=== PATIENT | male | born 1985 | race Caucasian/White ===

== ENCOUNTER 2020-03-07 00:06 | Inpatient (IN) | payer SELFPAY ==
[2020-03-07] MEDS ORDERED: NORMAL SALINE 1000 ML 1,000 ML IV ONE (00:32)
[2020-03-07] MEDS ORDERED: ONDANSETRON HCL INJ/PF 4 MG/2 ML SDV IV ONE (00:32)
--- NOTE | 2020-03-07 00:45 | ER Document Report ---
ED General - General Chief Complaint: Nausea/Vomiting Stated Complaint: VOMITING DUE TO POSSIBLE ULCERS Time Seen by Provider: 03/07/20 00:34 - HPI Context: Chief Complaint: [Nausea and vomiting] [This is a 34-year-old male presenting to the emergency department complaining of n/v x 24 hours. States he has been on doxycycline x 24 hours for cysts in his groin area. Pt reports he was feeling fine until he started the antibiotic. Reports he stopped the doxycycline today and started on Keflex. Pt denies diarrhea, reports pain to cysts in groin area. ] History obtained from [patient] Symptoms began:[1 day ago] Onset: [Sudden] Timing: [Sudden] Quality: [Severe nausea and persistent vomiting] Intensity: [Severe per patient] Location: [GI tract] Radiation: [Denies] [The pain does not migrate to a new location.] Aggravating factors: Patient started on doxycycline 24 hours ago Relieving factors: [none] [Denies] SOB Positive nausea Positive vomiting [Denies] sweats [Denies] fever [Denies] cough [Denies] calf or leg swelling or pain - Related Data Allergies/Adverse Reactions: Iodine and Iodide Containing Produc Allergy (Verified 03/07/20 01:04) Pertussis Vaccines Allergy (Verified 03/07/20 01:04) sulfamethoxazole [From Bactrim] Allergy (Verified 03/07/20 01:04) trimethoprim [From Bactrim] Allergy (Verified 03/07/20 01:04) Past Medical History - General Information source: Patient - Social History Smoking Status: Never Smoker Chew tobacco use (# tins/day): No Frequency of alcohol use: None Drug Abuse: None Family History: Reviewed & Not Pertinent Patient has homicidal ideation: No Review of Systems - Review of Systems Notes: Review of systems as below unless otherwise stated in HPI. CONSTITUTIONAL [No] fever, [No] chills. EYES [No] eye pain. ENT [No] URI symptoms, [No] sore throat, [No] ear pain. CARDIOVASCULAR [No] chest pain, [No] palpitations, [No] edema. RESPIRATORY [No] Cough, [No] SOB, [No] wheezing. GASTROINTESTINAL [No] abdominal pain, positive nausea, [No] Diarrhea, positive vomiting, [No] constipation, [No] melena, [No] rectal bleeding. GENITOURINARY [No] dysuria, [No] urinary frequency, [No] hematuria, [No] urinary urgency MUSCULOSKELETAL [No] Back pain. SKIN [No] Rash. NEUROLOGIC [No] Headache, [No] recent seizures, [No] paralysis,[No] parathesias. ENDOCRINE [No] polyuria. HEMO/LYMPATIC [No] easy brusing PSYCHIATRIC [No] depression. Physical Exam - Vital signs Vitals: Temp Pulse Resp BP Pulse Ox 98.3 F 151 H 13 122/79 100 03/07/20 00:16 03/07/20 00:16 03/07/20 00:16 03/07/20 00:16 03/07/20 00:16 - Notes Notes: CONSTITUTIONAL [Vital signs reviewed, Patient appears to feel unwell, Alert and oriented X 3, Normal stature.] HEAD [Atraumatic, Normocephalic.] EYES [Eyes are normal to inspection, No discharge from eyes, Extraocular muscles intact, Sclera are normal, Conjunctiva are normal.] ENT [External ears normal to inspection, Nose examination normal, Mouth normal to inspection.] NECK [Normal ROM, No jugular venous distention, No meningeal signs, ] RESPIRATORY CHEST [Chest is nontender, Breath sounds normal, No respiratory distress.] CARDIOVASCULAR Tachycardia no murmurs, Normal S1 S2, No rub, No gallop.] ABDOMEN [Abdomen is nontender, No pulsatile masses, No other masses, Bowel sounds normal, No distension, No peritoneal signs, No hernias.] BACK [There is no CVA Tenderness, There is no tenderness to palpation, Normal inspection.] UPPER EXTREMITY [Inspection normal, No cyanosis, No clubbing, No edema, LOWER EXTREMITY [Inspection normal, No cyanosis, No clubbing, No edema, No calf tenderness, NEURO [No focal motor deficits, No focal sensory deficits, Speech normal.] SKIN Skin exam is significant for erythema and swelling in the region of the mons pubis on the left side. This erythema and edema tracks down the left side of the scrotum it does not appear to involve the perineum. There is no crepitus or emphysematous changes noted on examination.]] PSYCHIATRIC [Normal affect. ] Course - Re-evaluation Re-evalutation: 03/07/20 05:08 Results of ED MSE discussed with patient. Need for admission discussed with patient. Patient is agreeable to this. - Vital Signs Vital signs: Temp Pulse Resp BP Pulse Ox 98.6 F 151 H 26 H 137/82 H 98 03/07/20 00:28 03/07/20 00:16 03/07/20 04:50 03/07/20 04:50 03/07/20 04:50 - Laboratory Results Result Diagrams: 03/07/20 00:36 03/07/20 00:36 Laboratory Results Interpreted: 03/07/20 03/07/20 03/07/20 00:36 00:36 00:36 WBC 27.1 H RBC 6.68 H Hgb 18.2 H Hct 55.9 H Seg Neuts % (Manual) 82 H Lymphocytes % (Manual) 10 L Abs Neuts (Manual) 22.2 H Abs Monocytes (Manual) 2.2 H VBG pH VBG pCO2 VBG HCO3 Carbon Dioxide 6 L* Anion Gap 36 H Glucose 492 H* POC Glucose Lactic Acid 4.9 H Calcium 10.4 H Direct Bilirubin 0.5 H Alkaline Phosphatase 166 H Total Protein 8.7 H Urine Protein Urine Glucose (UA) Urine Ketones Urine Blood 03/07/20 03/07/20 03/07/20 00:36 02:20 03:30 WBC RBC Hgb Hct Seg Neuts % (Manual) Lymphocytes % (Manual) Abs Neuts (Manual) Abs Monocytes (Manual) VBG pH 7.14 L* VBG pCO2 26.0 L VBG HCO3 8.7 L Carbon Dioxide Anion Gap Glucose POC Glucose 399 H Lactic Acid Calcium Direct Bilirubin Alkaline Phosphatase Total Protein Urine Protein 30 H Urine Glucose (UA) >=500 H Urine Ketones 80 H Urine Blood SMALL H 03/07/20 03:42 WBC RBC Hgb Hct Seg Neuts % (Manual) Lymphocytes % (Manual) Abs Neuts (Manual) Abs Monocytes (Manual) VBG pH VBG pCO2 VBG HCO3 Carbon Dioxide Anion Gap Glucose POC Glucose 336 H Lactic Acid Calcium Direct Bilirubin Alkaline Phosphatase Total Protein Urine Protein Urine Glucose (UA) Urine Ketones Urine Blood Critical Laboratory Results Reviewed: Yes Attending or Supervising Physician who Reviewed Labs: NUBIA SHELLEY IV - Radiology Results Critical Radiology Results Reviewed: Yes Attending or Supervising Physician who Reviewed Radiology: NUBIA SHELLEY IV - Chest x-ray and CAT scan reviewed - EKG Interpretation by Me Additional EKG results interpreted by me: 03/07/20 01:24 EKG obtained on 03/07/2020 at 0106 hrs. was interpreted by this MD. Findings: Sinus tachycardia, rate 141, AL interval appears to be within normal limits, P waves preceding QRS complexes, QRS complexes appear narrow, QTC is 404, there are no obvious patterns of ST segment elevation or depression seen to suggest acute myocardial ischemia or infarction. There is no prior EKG available for comparison. Impression: Sinus tachycardia with nonspecific ST segments. - Consults Dr. Sales Time consulted: 05:01 Reason for consultation: 03/07/20 05:01 cellulitis with elevated lactic acid, tachycardia Consulted provider: will come to ER Critical Care Note - Critical Care Note Total time excluding time spent on procedures (mins): 120 - Management of SIRS in diabetic pt Discharge - Discharge Clinical Impression: SIRS (systemic inflammatory response syndrome), H/O diabetes mellitus Cellulitis Qualifiers: Site of cellulitis: other site Qualified Code(s): L03.818 - Cellulitis of other sites Condition: Stable Disposition: ADMITTED INPATIENT Admitting Provider: Henrry (Hospitalist) Unit Admitted: [facility]
[2020-03-07 00:53] LABS: HEMOGLOBIN 18.2 g/dL (13.5-17.0); MEAN CORPUSCULAR HEMOGLOBIN 27.2 pg (27.0-33.4); MEAN CORPUSCULAR HGB CONC 32.5 g/dL (32.0-36.0); MEAN CORPUSCULAR VOLUME 84 fl (80-97); PLATELET COUNT 417 10^3/uL (150-450); RED BLOOD COUNT 6.68 10^6/uL (4.35-5.55); RED CELL DISTRIBUTION WIDTH 13.3 % (11.5-14.0); WHITE BLOOD COUNT 27.1 10^3/uL (4.0-10.5)
[2020-03-07] MEDS ORDERED: PROMETHAZINE HCL INJ 25 MG/1 ML VIAL IV ONE (00:59)
[2020-03-07 01:02] LABS: VENOUS BLOOD BASE EXCESS -18.6 mmol/L; VENOUS BLOOD HCO3 8.7 mmol/L (20-32)
[2020-03-07 01:06] LABS: ALBUMIN 4.8 g/dL (3.5-5.0); ALKALINE PHOSPHATASE 166 U/L (38-126); ASPARTATE AMINO TRANSFERASE 19 U/L (17-59); BILIRUBIN,DIRECT 0.5 mg/dL (0.0-0.4); BILIRUBIN,TOTAL 0.7 mg/dL (0.2-1.3); BLOOD UREA NITROGEN 19 mg/dL (7-20); CALCIUM 10.4 mg/dL (8.4-10.2); CHLORIDE 99 mmol/L (98-107); POTASSIUM 4.9 mmol/L (3.6-5.0); TOTAL PROTEIN 8.7 g/dL (6.3-8.2)
[2020-03-07 01:16] LABS: ANION GAP 36 (5-19)
[2020-03-07 01:17] LABS: CARBON DIOXIDE 6 mmol/L (22-30); GLUCOSE 492 mg/dL (75-110)
[2020-03-07 01:18] LABS: HEMATOCRIT 55.9 % (37.9-51.0)
[2020-03-07 01:19] LABS: VENOUS BLOOD PH 7.14 (7.30-7.42)
[2020-03-07 01:22] LABS: ABSOLUTE LYMPHOCYTES# (MANUAL) 2.7 10^3/uL (0.5-4.7); ABSOLUTE MONOCYTES # (MANUAL) 2.2 10^3/uL (0.1-1.4); BASOPHILS % (MANUAL) 0 % (0-2); EOSINOPHILS % (MANUAL) 0 % (0-6); LYMPHOCYTES % (MANUAL) 10 % (13-45); MONOCYTES % (MANUAL) 8 % (3-13); PLATELET COMMENT ADEQUATE; SEGMENTED NEUTROPHILS % (MAN) 82 % (42-78); TOTAL CELLS COUNTED 100
[2020-03-07 01:24] LABS: PLATELET CLUMPS PRESENT; POLYCHROMASIA SLIGHT
[2020-03-07] MEDS: NORMAL SALINE 1000 ML 1,000 ML IV PRN ×5 (01:31→03:11)
--- NOTE | 2020-03-07 01:33 | RADIOLOGY REPORT (SQ) ---
EXAM DESCRIPTION: XR CHEST 1 VIEW COMPLETED DATE/TME: 03/07/2020 01:15 CLINICAL HISTORY: 34 years, Male, vomiting COMPARISON: None. NUMBER OF VIEWS: 1 TECHNIQUE: Portable chest LIMITATIONS: None. FINDINGS: The heart size is normal. Lungs are clear. No pneumothorax IMPRESSION: Negative chest copyright 2011 [employer]- All Rights Reserved
[2020-03-07] MEDS ORDERED: PIPERACILLIN/TAZOBACTAM 4.5 GM VIAL IV ONE (03:35)
[2020-03-07 03:42] LABS: APPEARANCE,URINE CLEAR; BILIRUBIN,URINE NEGATIVE (NEGATIVE); COLOR,URINE STRAW; GLUCOSE, URINE >=500 mg/dL (NEGATIVE); KETONES,URINE 80 mg/dL (NEGATIVE); LEUKOCYTE ESTERASE,URINE NEGATIVE (NEGATIVE); NITRITE,URINE NEGATIVE (NEGATIVE); PROTEIN,URINE 30 mg/dL (NEGATIVE); URINE SPECIFIC GRAVITY 1.023; UROBILINOGEN,URINE NEGATIVE mg/dL (<2.0)
[2020-03-07 04:20] LABS: INTERNATIONAL RATION (INR) 1.17; PROTHROMBIN TIME 15.1 SEC (11.4-15.4)
--- NOTE | 2020-03-07 04:30 | RADIOLOGY REPORT (SQ) ---
EXAM: CT abdomen and pelvis without intravenous contrast CLINICAL DATA: 34 years Male nausea, vomiting, leukocytosis, lactic acid 3.9 TECHNICAL DATA: Axial CT imaging of the abdomen and pelvis was performed without oral or intravenous contrast. Sagittal and coronal reconstructed images were then performed. The CT study is performed according to ALARA (as low as reasonably achievable) or ALARA/IMAGE GENTLY, with automatic adjustment of mA and/or kV according to patient size. Performed on: 03/07/2020 at 3:45 AM Comparison: None. FINDINGS: Lung bases: Lung bases are clear. Liver:The liver is normal in size and configuration. No focal hepatic abnormalities are appreciated on this unenhanced scan. Liver attenuation is within normal limits. Spleen:The spleen is normal is size, configuration and attenuation. No focal splenic abnormalities are appreciated on this unenhanced scan. Gallbladder and bile duct: The gallbladder is well distended and unremarkable. There is no biliary ductal dilatation. Pancreas: The pancreas is grossly normal in size and configuration. Adrenal Glands:The adrenal glands are normal in size and configuration. Kidneys:The kidneys are normal in size and configuration. There is no evidence of hydronephrosis. There is no evidence of nephrolithiasis. No focal renal abnormalities are identified. Stomach:The stomach is grossly normal. There is no definite hiatal hernia. Bowel:The bowel gas pattern is non specific and non obstructive. Appendix: The appendix is normal. Free air:There is no evidence of free air. Free fluid: There is no evidence of free fluid. Vasculature: The aorta is normal in caliber and contour. The inferior vena cava is grossly unremarkable. Lymphadenopathy: No pathologic lymphadenopathy is identified. Bladder: The bladder is well distended and smooth in contour. Reproductive: The prostate gland is grossly within normal limits. Bones: No acute osseous abnormalities are identified. Soft tissues: There is infiltration of the subcutaneous fat in the left inguinal region of unclear etiology. An underlying infectious or inflammatory process is not excluded. Edema or contusion are also considered. IMPRESSION: 1. No evidence of acute intra-abdominal or intrapelvic pathology.. 2. Infiltration of the subcutaneous fat in the left inguinal region of unclear etiology. An underlying infectious or inflammatory process is not excluded. Edema or contusion are also considered.
[2020-03-07] MEDS ORDERED: VANCOMYCIN HCL INJ 1000 MG VIAL IV ONE (04:56)
[2020-03-07] MEDS ORDERED: CLINDAMYCIN 600 MG/D5W RTU 600 MG/50 ML RTUPB IV ONE (04:59)
[2020-03-07] MEDS ORDERED: OXYCODONE-ACETAMINOPHEN 5-325 MG TABLET PO PRN (05:36)
[2020-03-07] MEDS ORDERED: ONDANSETRON HCL INJ/PF 4 MG/2 ML SDV IV PRN (05:36)
[2020-03-07] MEDS ORDERED: ONDANSETRON 4 MG TAB.RAPDIS PO PRN (05:36)
[2020-03-07] MEDS ORDERED: NORMAL SALINE 1000 ML 1,000 ML IV PRN (05:36)
[2020-03-07] MEDS ORDERED: ACETAMINOPHEN 325 MG TABLET PO PRN (05:36)
[2020-03-07] MEDS ORDERED: DEXTROSE 50%-WATER 25 GM/50 ML DISP.SYRIN IV PRN ×4 (05:51→06:10)
[2020-03-07] MEDS ORDERED: NORMAL SALINE 100 ML with INSULIN REGULAR, HUMAN 100 UNIT IV PRN ×4 (05:51→06:10)
[2020-03-07] MEDS ORDERED: DEXTROSE 40% GEL 15 GM TUBE PO PRN ×4 (05:51→06:10)
[2020-03-07] MEDS ORDERED: GLUCAGON,HUMAN RECOMB 1 MG INJ IM PRN ×2 (05:51→06:10)
[2020-03-07] MEDS ORDERED: MORPHINE SULFATE 10 MG/ML INJ IV PRN (05:58)
[2020-03-07] MEDS ORDERED: INSULIN GLARGINE,HUM.REC.ANLOG 1,000 UNIT/10 ML VIAL SUBCUT SCH (06:00)
[2020-03-07] MEDS ORDERED: PIPERACILLIN/TAZOBACTAM 3.375 GM VIAL IV SCH (06:00)
--- NOTE | 2020-03-07 06:03 | PDOC H&P ---
History of Present Illness Admission Date/PCP: 03/07/20 05:16 History of Present Illness: WILMAN HERRERA is a 34 year old male with past medical history significant for T2DM presents to the ED with a 3-day history of progressive left groin pain/edema/erythema with associated chills/nausea/vomiting. Patient was evaluated by telemedicine physician who gave him oral doxycycline which patient took for 2 days and subsequently began vomiting, telemedicine physician stopped this and changed patient to Keflex which he took for 1 day although the patient continued vomiting. Patient came to ED today for worsening symptoms and inability to keep his antibiotics down. Patient notably tachycardic into the 130s on admission despite being given multiple liters of IV fluid. CT abdomen/pelvis showed likely infection/cellulitis in the left groin otherwise no acute findings. Blood sugar markedly elevated on admission up to 492 and lactate elevated at 4.9. Urine showed severe glucosuria and ketones, patient also has a gap acidosis of 36 on BMP and a CO2 of 6. Patient started on insulin drip and sent IMCU. Started on vancomycin/Zosyn/clindamycin for sepsis due to left groin cellulitis. Past Medical History Endocrine Medical History: Reports: Diabetes Mellitus Type 2 Renal/ Medical History: Reports: Nephrolithiasis Past Surgical History Past Surgical History: Reports: None Social History Information Source: Patient, Emergency Med Personnel Lives with: Family Smoking Status: Never Smoker Electronic Cigarette use?: No Frequency of Alcohol Use: None Drugs: None - Advance Directive Resuscitation Status: Full Code Surrogate healthcare decision maker:: Admitting diagnosis: Sepsis due to cellulitis All aspects of code status discussed with patient/POA including cardioversion, chest compressions, and intubation and the patient/POA indicated they wish to be full code MPOA is designated as: , Destiny Herrera Time spent: Greater than 16 minutes Family History Family History: Reviewed & Not Pertinent Parental Family History Reviewed: Yes Children Family History Reviewed: Yes Sibling(s) Family History Reviewed.: Yes Medication/Allergy Allergies/Adverse Reactions: Iodine and Iodide Containing Produc Allergy (Verified 03/07/20 01:04) Pertussis Vaccines Allergy (Verified 03/07/20 01:04) sulfamethoxazole [From Bactrim] Allergy (Verified 03/07/20 01:04) trimethoprim [From Bactrim] Allergy (Verified 03/07/20 01:04) Review of Systems All systems: reviewed and no additional remarkable complaints except as stated - Per HPI otherwise negative Physical Exam Vital Signs: Temp Pulse Resp BP Pulse Ox 98.6 F 151 H 30 H 126/73 H 97 03/07/20 00:28 03/07/20 00:16 03/07/20 05:01 03/07/20 05:01 03/07/20 05:01 Intake & Output 03/05/20 03/06/20 03/07/20 06:59 06:59 06:59 Intake Total 5250 Output Total 1200 Balance 4050 Weight 104.326 kg Exam: General appearance: PRESENT: no acute distress, well-developed, well-nourished, acutely ill-appearing white male, obese with BMI 32.1 Head exam: PRESENT: atraumatic, normocephalic Eye exam: PRESENT: conjunctiva pink. ABSENT: scleral icterus Mouth exam: PRESENT: moist Respiratory exam: PRESENT: clear to auscultation [place]. ABSENT: rales, rhonchi, wheezes Cardiovascular exam: PRESENT: RRR. ABSENT: diastolic murmur, rubs, systolic murmur GI/Abdominal exam: PRESENT: normal bowel sounds, soft. ABSENT: distended, guarding, mass, organolmegaly, rebound, tenderness Neurological exam: PRESENT: alert, awake, oriented to person, oriented to place, oriented to time, oriented to situation Psychiatric exam: PRESENT: appropriate affect, normal mood Skin exam: PRESENT: dry, intact, warm exam: Left groin with notable erythema/edema/tenderness Results Laboratory Results: 03/07/20 00:36 03/07/20 00:36 03/07/20 03/07/20 03/07/20 00:36 00:36 00:36 WBC 27.1 H RBC 6.68 H Hgb 18.2 H Hct 55.9 H MCV 84 MCH 27.2 MCHC 32.5 RDW 13.3 Plt Count 417 Seg Neutrophils % Not Reportable VBG pH VBG pCO2 VBG HCO3 VBG Base Excess Sodium 140.7 Potassium 4.9 Chloride 99 Carbon Dioxide 6 L* Anion Gap 36 H BUN 19 Creatinine 1.12 Est GFR ( Amer) > 60 Glucose 492 H* Lactic Acid 4.9 H Calcium 10.4 H Total Bilirubin 0.7 AST 19 Alkaline Phosphatase 166 H Total Protein 8.7 H Albumin 4.8 Lipase Urine Color Urine Appearance Urine pH Ur Specific [place] Urine Protein Urine Glucose (UA) Urine Ketones Urine Blood Urine Nitrite Ur Leukocyte Esterase Urine WBC (Auto) Urine RBC (Auto) 03/07/20 03/07/20 03/07/20 00:36 00:36 03:30 WBC RBC Hgb Hct MCV MCH MCHC RDW Plt Count Seg Neutrophils % VBG pH 7.14 L* VBG pCO2 26.0 L VBG HCO3 8.7 L VBG Base Excess -18.6 Sodium Potassium Chloride Carbon Dioxide Anion Gap BUN Creatinine Est GFR ( Amer) Glucose Lactic Acid Calcium Total Bilirubin AST Alkaline Phosphatase Total Protein Albumin Lipase 54.1 Urine Color STRAW Urine Appearance CLEAR Urine pH 5.0 Ur Specific [place] 1.023 Urine Protein 30 H Urine Glucose (UA) >=500 H Urine Ketones 80 H Urine Blood SMALL H Urine Nitrite NEGATIVE Ur Leukocyte Esterase NEGATIVE Urine WBC (Auto) 1 Urine RBC (Auto) 7 Impressions: Chest X-Ray 03/07/20 00:44 IMPRESSION: Negative chest copyright 2011 [employer]- All Rights Reserved Abdomen/Pelvis CT 03/07/20 03:37 IMPRESSION: 1. No evidence of acute intra-abdominal or intrapelvic pathology.. 2. Infiltration of the subcutaneous fat in the left inguinal region of unclear etiology. An underlying infectious or inflammatory process is not excluded. Edema or contusion are also considered. Assessment and Plan - Diagnosis (1) Cellulitis of left groin Is this a current diagnosis for this admission?: Yes Plan: Unclear how/why patient developed cellulitis in his left groin CT abdomen/pelvis showed extravasation in the left groin consistent with inflammatory/infectious process Ultrasound left groin to evaluate for abscess May need general surgery consult if drainable abscess is found Vancomycin/Zosyn/clindamycin (2) DKA (diabetic ketoacidoses) Qualifiers: Diabetes mellitus type: type 2 Diabetes mellitus complication detail: without coma Qualified Code(s): E11.10 - Type 2 diabetes mellitus with ketoacidosis without coma Is this a current diagnosis for this admission?: Yes Plan: T2DM -Insulin drip, frequent glucose checks with appropriate adjustments in insulin infusion rate -May need long acting insulin indicated for HgA1C of 10 or greater at discharge -diet counseling -outpt FU with PCP CO2 on admission 6 Anion gap 36 on admission (3) Sepsis Qualifiers: Sepsis type: sepsis due to unspecified organism Sepsis acute organ dysfunction status: with acute organ dysfunction Severe sepsis acute organ dysfunction type: unspecified Severe sepsis shock status: without septic shock Qualified Code(s): A41.9 - Sepsis, unspecified organism; R65.20 - Severe sepsis without septic shock Is this a current diagnosis for this admission?: Yes Plan: Due to left groin cellulitis Aggressive IV fluids Antibiotics as above Close hemodynamic monitoring Watch for septic shock and transferred to ICU for pressor support if indicated (4) T2DM (type 2 diabetes mellitus) Qualifiers: Diabetes mellitus custodial insulin use: without custodial use Diabetes mellitus complication status: with hyperglycemia Qualified Code(s): E11.65 - Type 2 diabetes mellitus with hyperglycemia Is this a current diagnosis for this admission?: Yes Plan: As above (5) Obesity (BMI 30.0-34.9) Is this a current diagnosis for this admission?: Yes Plan: Needs weight loss (6) Metabolic acidosis, increased anion gap Is this a current diagnosis for this admission?: Yes Plan: As above - Time Time Spent with patient: 35 or more minutes Medications reviewed and adjusted accordingly: Yes Anticipated Discharge Disposition: Home, Self Care Anticipated Discharge Timeframe: within 72 hours - Inpatient Certification Based on my medical assessment, after consideration of the patient's comorbidities, presenting symptoms, or acuity I expect that the services needed warrant INPATIENT care.: Yes I certify that my determination is in accordance with my understanding of Medicare's requirements for reasonable and necessary INPATIENT services [42 CFR 412.3e].: Yes Medical Necessity: Significant Comorbidiites Make Outpatient Treatment Too Risky, Need Close Monitoring Due to Risk of Patient Decompensation, Need For IV Fluids, Need for IV Antibiotics, Risk of Complication if Not Cared For in Hospital, Risk of Diagnosis Which Will Require Inpatient Eval/Care/Monitoring
[2020-03-07 06:23] LABS: HEMATOCRIT 45.4 % (37.9-51.0); MEAN CORPUSCULAR HEMOGLOBIN 27.7 pg (27.0-33.4); MEAN CORPUSCULAR HGB CONC 32.8 g/dL (32.0-36.0); MEAN CORPUSCULAR VOLUME 84 fl (80-97); PLATELET COUNT 300 10^3/uL (150-450); RED BLOOD COUNT 5.38 10^6/uL (4.35-5.55); RED CELL DISTRIBUTION WIDTH 13.5 % (11.5-14.0); WHITE BLOOD COUNT 23.3 10^3/uL (4.0-10.5)
[2020-03-07] MEDS ORDERED: INSULIN REG, HUMAN 100 UNIT/ML 3 ML VIAL (PYX) ONE (06:23)
[2020-03-07 06:50] LABS: BLOOD UREA NITROGEN 18 mg/dL (7-20); CALCIUM 8.6 mg/dL (8.4-10.2); CHLORIDE 115 mmol/L (98-107); POTASSIUM 5.3 mmol/L (3.6-5.0)
[2020-03-07 07:17] LABS: CARBON DIOXIDE < 5 mmol/L (22-30); GLUCOSE 412 mg/dL (75-110)
[2020-03-07 07:56] LABS: HEMOGLOBIN 14.9 g/dL (13.5-17.0)
[2020-03-07 07:59] LABS: ABSOLUTE LYMPHOCYTES# (MANUAL) 1.9 10^3/uL (0.5-4.7); ABSOLUTE MONOCYTES # (MANUAL) 1.9 10^3/uL (0.1-1.4); BASOPHILS % (MANUAL) 0 % (0-2); EOSINOPHILS % (MANUAL) 0 % (0-6); LYMPHOCYTES % (MANUAL) 8 % (13-45); MONOCYTES % (MANUAL) 8 % (3-13); SEGMENTED NEUTROPHILS % (MAN) 84 % (42-78); TOTAL CELLS COUNTED 100
[2020-03-07 08:00] LABS: PLATELET COMMENT ADEQUATE
[2020-03-07 08:01] LABS: HYPERSEGMENTED NEUTROPHILS PRESENT
[2020-03-07 08:03] LABS: TOXIC VACUOLATION PRESENT
[2020-03-07 08:04] LABS: POLYCHROMASIA SLIGHT
--- NOTE | 2020-03-07 08:19 | RADIOLOGY REPORT (SQ) ---
EXAM DESCRIPTION: U/S ABDOMEN LIMITED W/O DOP IMAGES COMPLETED DATE/TIME: 03/07/2020 7:57 am REASON FOR STUDY: Possible left groin abscess COMPARISON: None. TECHNIQUE: Dynamic and static grayscale images acquired of the localized site of clinical concern an d recorded on PACS. Additional selected color Doppler and spectral images recorded. SITE OF CONCERN: Left groin LIMITATIONS: None. FINDINGS: SKIN AND SUBCUTANEOUS TISSUES: Extensive edema in the fatty soft tissues. There is an vish ngated 3.7 cm fluid collection. No blood flow. DEEP SOFT TISSUES/MUSCLES: No masses. No fluid collections. No edema. VASCULAR: No increased or decreased vascularity. No occlusions. OTHER: No other significant finding. IMPRESSION: 3.7 cm fluid collection with surrounding extensive edema in the subcutaneous fat likely abscess. TECHNICAL DOCUMENTATION: JOB ID: [id number] 2010 [employer]- All Rights Reserved Reading location - IP/workstation name: [email or web address]
[2020-03-07] MEDS ORDERED: PIPERACILLIN SODIUM/TAZOBACTAM 3.375 GM in NORMAL SALINE 100 ML IV SCH ×2 (09:00→12:00)
[2020-03-07] MEDS ORDERED: DOCUSATE SODIUM 100 MG CAPSULE PO SCH (10:00)
[2020-03-07] MEDS ORDERED: ENOXAPARIN SODIUM INJ 40 MG/0.4 ML DISP.SYRIN SUBCUT SCH (10:00)
[2020-03-07] MEDS: INSULIN LISPRO 100 UNIT/ML 3 ML VIAL SUBCUT SCH ×2 (10:32→11:55)
--- NOTE | 2020-03-07 10:43 | PDOC CONSULTATION ---
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 He called his primary care physician and received a prescription of doxycycline that the patient took without improvement of his symptoms therefore he presented to the emergency room this morning. He is blood work reveals a white blood cell count of 27,000, elevated lactic acid of 4.9, elevated hemoglobin A1c. A CT scan abdomen pelvis was done revealing no intra-abdominal pathology; however, there is severe inflammatory change of the left groin extending down to the penis and scrotum. , Past Medical History Endocrine Medical History: Reports: Diabetes Mellitus Type 2 Renal/ Medical History: Reports: Nephrolithiasis Past Surgical History Past Surgical History: Reports: None Social History Lives with: Family Smoking Status: Never Smoker Electronic Cigarette use?: No Frequency of Alcohol Use: None Hx Recreational Drug Use: No Drugs: None Hx Prescription Drug Abuse: No - Advance Directive Resuscitation Status: Full Code Family History Family History: Reviewed & Not Pertinent Parental Family History Reviewed: Yes - Diabetes Children Family History Reviewed: No Sibling(s) Family History Reviewed.: Yes - Diabetes Medication/Allergy Allergies/Adverse Reactions: Iodine and Iodide Containing Produc Allergy (Verified 03/07/20 01:04) Pertussis Vaccines Allergy (Verified 03/07/20 01:04) sulfamethoxazole [From Bactrim] Allergy (Verified 03/07/20 01:04) trimethoprim [From Bactrim] Allergy (Verified 03/07/20 01:04) Physical Exam Vital Signs: Temp Pulse Resp BP Pulse Ox 98.5 F 131 H 26 H 142/80 H 100 03/07/20 07:05 03/07/20 07:05 03/07/20 07:05 03/07/20 07:05 03/07/20 07:05 Intake & Output 03/06/20 03/07/20 03/08/20 06:59 06:59 06:59 Intake Total 5300 Output Total 1200 Balance 4100 Weight 99.4 kg General appearance: PRESENT: mild distress, obese, other - Somewhat somnolent but arousable Head exam: PRESENT: atraumatic Eye exam: PRESENT: EOMI Mouth exam: PRESENT: moist, neck supple Neck exam: PRESENT: full ROM Respiratory exam: PRESENT: clear to auscultation [place] Cardiovascular exam: PRESENT: RRR GI/Abdominal exam: PRESENT: soft Rectal exam: PRESENT: deferred Gentrourinary exam: PRESENT: other - Left groin = large area of violacious erythema and edema extending into the midline and involving the entire left groin, penis, and scrotum, with tenderness and induration particularly on the left side of the scrotum. No subcutaneous crepitation identified. No areas of skin necrosis seen. Extremities exam: PRESENT: full ROM Musculoskeletal exam: PRESENT: full ROM Neurological exam: PRESENT: alert, awake, oriented to person, oriented to time, CN II-XII grossly intact Skin exam: PRESENT: warm Results Laboratory Results: 03/07/20 06:06 03/07/20 06:06 03/07/20 03/07/20 03/07/20 00:36 00:36 00:36 WBC 27.1 H RBC 6.68 H Hgb 18.2 H Hct 55.9 H MCV 84 MCH 27.2 MCHC 32.5 RDW 13.3 Plt Count 417 Seg Neutrophils % Not Reportable VBG pH VBG pCO2 VBG HCO3 VBG Base Excess Sodium 140.7 Potassium 4.9 Chloride 99 Carbon Dioxide 6 L* Anion Gap 36 H BUN 19 Creatinine 1.12 Est GFR ( Amer) > 60 Glucose 492 H* Lactic Acid 4.9 H Calcium 10.4 H Total Bilirubin 0.7 AST 19 Alkaline Phosphatase 166 H Total Protein 8.7 H Albumin 4.8 Lipase Urine Color Urine Appearance Urine pH Ur Specific Frederic Urine Protein Urine Glucose (UA) Urine Ketones Urine Blood Urine Nitrite Ur Leukocyte Esterase Urine WBC (Auto) Urine RBC (Auto) 03/07/20 03/07/20 03/07/20 00:36 00:36 03:30 WBC RBC Hgb Hct MCV MCH MCHC RDW Plt Count Seg Neutrophils % VBG pH 7.14 L* VBG pCO2 26.0 L VBG HCO3 8.7 L VBG Base Excess -18.6 Sodium Potassium Chloride Carbon Dioxide Anion Gap BUN Creatinine Est GFR ( Amer) Glucose Lactic Acid Calcium Total Bilirubin AST Alkaline Phosphatase Total Protein Albumin Lipase 54.1 Urine Color STRAW Urine Appearance CLEAR Urine pH 5.0 Ur Specific Frederic 1.023 Urine Protein 30 H Urine Glucose (UA) >=500 H Urine Ketones 80 H Urine Blood SMALL H Urine Nitrite NEGATIVE Ur Leukocyte Esterase NEGATIVE Urine WBC (Auto) 1 Urine RBC (Auto) 7 03/07/20 03/07/20 06:06 06:06 WBC 23.3 H RBC 5.38 Hgb 14.9 D Hct 45.4 MCV 84 MCH 27.7 MCHC 32.8 RDW 13.5 Plt Count 300 Seg Neutrophils % Not Reportable VBG pH VBG pCO2 VBG HCO3 VBG Base Excess Sodium 142.6 Potassium 5.3 H Chloride 115 H Carbon Dioxide < 5 L* Anion Gap Not Reportable BUN 18 Creatinine 0.82 Est GFR ( Amer) > 60 Glucose 412 H* Lactic Acid Calcium 8.6 Total Bilirubin AST Alkaline Phosphatase Total Protein Albumin Lipase Urine Color Urine Appearance Urine pH Ur Specific Frederic Urine Protein Urine Glucose (UA) Urine Ketones Urine Blood Urine Nitrite Ur Leukocyte Esterase Urine WBC (Auto) Urine RBC (Auto) Impressions: Abdomen Ultrasound 03/07/20 00:00 IMPRESSION: 3.7 cm fluid collection with surrounding extensive edema in the subcutaneous fat likely abscess. Chest X-Ray 03/07/20 00:44 IMPRESSION: Negative chest copyright 2011 [place]- All Rights Reserved Abdomen/Pelvis CT 03/07/20 03:37 IMPRESSION: 1. No evidence of acute intra-abdominal or intrapelvic pathology.. 2. Infiltration of the subcutaneous fat in the left inguinal region of unclear etiology. An underlying infectious or inflammatory process is not excluded. Edema or contusion are also considered. 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 Is this a current diagnosis for this admission?: Yes (2) Cellulitis of left groin Is this a current diagnosis for this admission?: Yes - Plan Summary Plan Summary: Assessment: 34-year-old male with type 1 diabetes on oral antidiabetic agents Patient complaining of severe pain and erythema the left groin penis and scrotum Physical exam demonstrates a large area of violaceous erythema involving the left groin crossing midline and extending to the penis and left side of the scrotum with tenderness and edema, no subcutaneous crepitus appreciated White blood cell count on admission 27,000 now 23,000 Fasting blood sugar 412 Hemoglobin A1c [address] scan abdomen pelvis reveals large area of inflammatory change of left groin extending to the midline and down to the area of the penis and scrotum, no subcutaneous gas identified By the symptoms, physical exam, blood work, and CT findings I 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 This patient's Hillary gangrene cannot be dealt with at this institution due to lack of specialized services (urology). Discussed above with with the primary care physician Dr. Aguirre as well as with the patient. They both understand. I will sign off. Please call me with questions
--- NOTE | 2020-03-07 11:13 | PDOC TRANSFER SUMMARY ---
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 Is this a current diagnosis for this admission?: Yes Diagnosis Summary: - 5 day history of left groin pain briefly treated with doxy but unable to tolerate - HX of Uncontrolled Type 2 DM and currently on DKA - +ve extensive erythema and tenderness left groin up to penile shaft and left scrotum -BP 142/38, HR 130s, O2sat 98% on RA, T 99.8 - WBC 23,000 - Lactate 5 - CT abdomen and pelvis showed subcutaneous fat infection left groin - on Vanc, Zosyn and Clinda fro abx - Surgery consulted who recommended transfer due to involvement of penile shaft and scrotum and the need for Urology service and extensive debridement - [facility] accepted the patient (2) DKA (diabetic ketoacidoses) Is this a current diagnosis for this admission?: Yes Diagnosis Summary: - Hx of Type 2 DM on glipizide and metformin - Aic 14 - BG 419, AG 36, 7.14 - +ve urine ketones - K 5.3 - currently on insulin dip - NS @ 200ml/hr - repeat BMP q4 (3) Metabolic acidosis, increased anion gap Is this a current diagnosis for this admission?: Yes Diagnosis Summary: - 2/2 DKA - on IV fluids and insulin - repeat BMP q4 (4) Sepsis Is this a current diagnosis for this admission?: Yes Diagnosis Summary: - HR 130s with Hillary's gangrene - on IV fluids 200 ml/hr - on Vanc/zosyn/ clinda [facility] ([facility]) T2DM (type 2 diabetes mellitus) Is this a current diagnosis for this admission?: Yes Diagnosis Summary: - poorly controlled on Glipizide and metformin - A1C 14 - currently on insulin drip - Transfer Medications Transfer Medications: Current Medications Acetaminophen (Acetaminophen 325 Mg Tablet) 650 mg PO Q4HP PRN PRN Reason: Pain or fever Stop: 04/06/20 05:35 Dextrose (Dextrose 50%-Water 25 Gm/50 Ml Disp.Syrin) 12.5 gm IV PRN PRN; Protocol PRN Reason: FOR BG 50-69 IN ALERT PATIENT Stop: 04/06/20 05:50 Dextrose (Dextrose 50%-Water 25 Gm/50 Ml Disp.Syrin) 25 gm IV PRN PRN; Protocol PRN Reason: PER PROTOCOL Stop: 04/06/20 05:50 Docusate Sodium (Docusate Sodium 100 Mg Capsule) 100 mg PO DAILY [facility] Stop: 04/06/20 09:59 Last Admin: 03/07/20 10:34 Dose: 100 mg Documented by: Glucagon (Glucagon,Human Recomb 1 Mg Inj) 1 mg IM PRN PRN; Protocol PRN Reason: Evaluate for BG < 70 Stop: 04/06/20 05:50 Glucose (Dextrose 40% Gel 15 Gm Tube) 15 gm PO PRN PRN; Protocol PRN Reason: FOR BG 50-69 IN ALERT PATIENT Stop: 04/06/20 05:50 Glucose (Dextrose 40% Gel 15 Gm Tube) 30 gm PO PRN PRN; Protocol PRN Reason: FOR BG < 50 IN ALERT PATIENT Stop: 04/06/20 05:50 Sodium Chloride (Nacl 0.9% 1000 Ml Iv Soln) 1,000 mls @ 150 mls/hr IV CONTINUOUS PRN PRN Reason: THIS MED IS NOT "PRN" Stop: 04/06/20 05:35 Last Admin: 03/07/20 07:02 Dose: 150 mls/hr Documented by: Clindamycin Phosphate/Dextrose (Cleocin Rtu 600 Mg/D5w 50 Ml Premix) 600 mg in 50 mls @ 50 mls/hr IV Q8 [facility] Stop: 03/14/20 13:59 Insulin Human Regular 100 unit (/ Sodium Chloride) 101 mls @ 0 mls/hr IV CONTINUOUS PRN; Protocol PRN Reason: THIS MED IS NOT "PRN" Stop: 04/06/20 05:50 Last Admin: 03/07/20 06:36 Dose: 5.2 mls/hr, 5.2 mls/hr Documented by: Piperacillin Sod/Tazobactam (Sod 3.375 gm/ Sodium Chloride) 100 mls @ 200 mls/hr IV Q6A [facility] Stop: 03/14/20 08:59 Last Admin: 03/07/20 10:34 Dose: 200 mls/hr Documented by: Vancomycin HCl 1,250 mg/ (Dextrose) 250 mls @ 166.667 mls/hr IV Q8 [facility] Stop: 03/14/20 13:59 Insulin Human Lispro (Insulin Lispro 100 Unit/Ml 3 Ml Vial) 0 - 12 unit [facility]; Protocol Stop: 04/06/20 07:59 Last Admin: 03/07/20 10:32 Dose: Not Given Documented by: Morphine Sulfate (Morphine Sulfate 10 Mg/Ml Inj) 1 mg IV Q3HP PRN PRN Reason: SEVERE PAIN Stop: 03/14/20 05:57 Ondansetron HCl (Ondansetron 4 Mg Tab.Rapdis) 4 mg PO Q4HP PRN PRN Reason: FOR NAUSEA/VOMITING Stop: 04/06/20 05:35 Ondansetron HCl (Ondansetron Hcl Inj/Pf 4 Mg/2 Ml Sdv) 4 mg IV Q4HP PRN PRN Reason: FOR NAUSEA/VOMITING Stop: 04/06/20 05:35 Oxycodone/Acetaminophen (Oxycodone-Acetaminophen 5-325 Mg Tablet) 1 tab PO Q4HP PRN PRN Reason: Moderate pain Stop: 03/14/20 05:35 - Allergies Allergies/Adverse Reactions: Iodine and Iodide Containing Produc Allergy (Verified 03/07/20 01:04) Pertussis Vaccines Allergy (Verified 03/07/20 01:04) sulfamethoxazole [From Bactrim] Allergy (Verified 03/07/20 01:04) trimethoprim [From Bactrim] Allergy (Verified 03/07/20 01:04) Hospital Course Hospital Course: WILMAN HERRERA is a 34 year old male with past medical history significant for T2DM presents to the ED with a 3-day history of progressive left groin pain/edema/erythema with associated chills/nausea/vomiting. Patient was evaluated by telemedicine physician who gave him oral doxycycline which patient took for 2 days and subsequently began vomiting, telemedicine physician stopped this and changed patient to Keflex which he took for 1 day although the patient continued vomiting. Patient came to ED today for worsening symptoms and inability to keep his antibiotics down. Patient notably tachycardic into the 130s on admission despite being given multiple liters of IV fluid. CT abdo men/pelvis showed likely infection/cellulitis in the left groin otherwise no acute findings. Blood sugar markedly elevated on admission up to 492 and lactate elevated at 4.9. Urine showed severe glucosuria and ketones, patient also has a gap acidosis of 36 on BMP and a CO2 of 6. Patient started on insulin drip and sent IMCU. Started on vancomycin/Zosyn/clindamycin for sepsis due to left groin cellulitis. Physical Exam Vital Signs: Temp Pulse Resp BP Pulse Ox 98.5 F 131 H 26 H 142/80 H 100 03/07/20 07:05 03/07/20 07:05 03/07/20 07:05 03/07/20 07:05 03/07/20 07:05 Intake & Output 03/06/20 03/07/20 03/08/20 06:59 06:59 06:59 Intake Total 5300 Output Total 1200 Balance 4100 Weight 99.4 kg General appearance: PRESENT: no acute distress, cooperative, obese Head exam: PRESENT: atraumatic, normocephalic Eye exam: PRESENT: EOMI, PERRLA Mouth exam: PRESENT: moist Respiratory exam: PRESENT: clear to auscultation [place], symmetrical, unlabored Cardiovascular exam: PRESENT: RRR, +S1, +S2 GI/Abdominal exam: PRESENT: normal bowel sounds, soft. ABSENT: tenderness Gentrourinary exam: PRESENT: erythema, scrotal swelling, other - extensive erythema and tenderness left groin extending to penile shaft and left scrotum Extremities exam: PRESENT: full ROM Musculoskeletal exam: PRESENT: full ROM Neurological exam: PRESENT: alert, awake, oriented to person, oriented to place, oriented to time, oriented to situation Psychiatric exam: PRESENT: normal mood Skin exam: PRESENT: normal color Results Laboratory Results: 03/07/20 06:06 03/07/20 06:06 03/07/20 03/07/20 03/07/20 00:36 00:36 00:36 WBC 27.1 H RBC 6.68 H Hgb 18.2 H Hct 55.9 H MCV 84 MCH 27.2 MCHC 32.5 RDW 13.3 Plt Count 417 Seg Neutrophils % Not Reportable VBG pH VBG pCO2 VBG HCO3 VBG Base Excess Sodium 140.7 Potassium 4.9 Chloride 99 Carbon Dioxide 6 L* Anion Gap 36 H BUN 19 Creatinine 1.12 Est GFR ( Amer) > 60 Glucose 492 H* Lactic Acid 4.9 H Calcium 10.4 H Total Bilirubin 0.7 AST 19 Alkaline Phosphatase 166 H Total Protein 8.7 H Albumin 4.8 Lipase Urine Color Urine Appearance Urine pH Ur Specific [place] Urine Protein Urine Glucose (UA) Urine Ketones Urine Blood Urine Nitrite Ur Leukocyte Esterase Urine WBC (Auto) Urine RBC (Auto) 03/07/20 03/07/20 03/07/20 00:36 00:36 03:30 WBC RBC Hgb Hct MCV MCH MCHC RDW Plt Count Seg Neutrophils % VBG pH 7.14 L* VBG pCO2 26.0 L VBG HCO3 8.7 L VBG Base Excess -18.6 Sodium Potassium Chloride Carbon Dioxide Anion Gap BUN Creatinine Est GFR ( Amer) Glucose Lactic Acid Calcium Total Bilirubin AST Alkaline Phosphatase Total Protein Albumin Lipase 54.1 Urine Color STRAW Urine Appearance CLEAR Urine pH 5.0 Ur Specific [place] 1.023 Urine Protein 30 H Urine Glucose (UA) >=500 H Urine Ketones 80 H Urine Blood SMALL H Urine Nitrite NEGATIVE Ur Leukocyte Esterase NEGATIVE Urine WBC (Auto) 1 Urine RBC (Auto) 7 03/07/20 03/07/20 06:06 06:06 WBC 23.3 H RBC 5.38 Hgb 14.9 D Hct 45.4 MCV 84 MCH 27.7 MCHC 32.8 RDW 13.5 Plt Count 300 Seg Neutrophils % Not Reportable VBG pH VBG pCO2 VBG HCO3 VBG Base Excess Sodium 142.6 Potassium 5.3 H Chloride 115 H Carbon Dioxide < 5 L* Anion Gap Not Reportable BUN 18 Creatinine 0.82 Est GFR ( Amer) > 60 Glucose 412 H* Lactic Acid Calcium 8.6 Total Bilirubin AST Alkaline Phosphatase Total Protein Albumin Lipase Urine Color Urine Appearance Urine pH Ur Specific [place] Urine Protein Urine Glucose (UA) Urine Ketones Urine Blood Urine Nitrite Ur Leukocyte Esterase Urine WBC (Auto) Urine RBC (Auto) Impressions: Abdomen Ultrasound 03/07/20 00:00 IMPRESSION: 3.7 cm fluid collection with surrounding extensive edema in the subcutaneous fat likely abscess. Chest X-Ray 03/07/20 00:44 IMPRESSION: Negative chest copyright 2011 [employer]- All Rights Reserved Abdomen/Pelvis CT 03/07/20 03:37 IMPRESSION: 1. No evidence of acute intra-abdominal or intrapelvic pathology.. 2. Infiltration of the subcutaneous fat in the left inguinal region of unclear etiology. An underlying infectious or inflammatory process is not excluded. Edema or contusion are also considered. Plan Discharge Plan: Patient was accepted at [facility] under Urology service. I was able to speak to Dr. Stevens who has accepted the patient Time Spent: Greater than 30 Minutes
[2020-03-07 11:41] VITALS: BP 121/58
[2020-03-07] MEDS ORDERED: VANCOMYCIN HCL 1,250 MG in DEXTROSE 5%-WATER 250 ML IV SCH (14:00)
[2020-03-07] MEDS ORDERED: CLINDAMYCIN 600 MG/D5W RTU 600 MG/50 ML RTUPB IV SCH (14:00)
--- NOTE | 2020-03-07 22:35 | EKG REPORT ---
SEVERITY:- BORDERLINE ECG - SINUS TACHYCARDIA BORDERLINE T ABNORMALITIES, INFERIOR LEADS : Confirmed by: Jose Willis 07-Mar-2020 22:34:50
[2020-03-08] MEDS ORDERED: VANCOMYCIN HCL INJ 1000 MG VIAL IV SCH (18:00)
== END 2020-03-07 12:18 | disposition short-term general hospital (02) | DRG 871 ==
LOC: ER 00:06 → EH 05:16 → 3S 07:12
PROVIDERS: ADMIT Internal Medicine; ATTEND Internal Medicine
DX: A41.9 Sepsis, unspecified organism (principal); E11.10 Type 2 diabetes mellitus with ketoacidosis without coma; L03.314 Cellulitis of groin; E11.52 Type 2 diabetes mellitus with diabetic peripheral angiopathy with gangrene; N49.3 Fournier gangrene; R65.20 Severe sepsis without septic shock; E66.9 Obesity, unspecified; Z20.822 Contact with and (suspected) exposure to COVID-19; Z79.84 Long term (current) use of oral hypoglycemic drugs; Z88.3 Allergy status to other anti-infective agents; Z88.7 Allergy status to serum and vaccine; Z88.8 Allergy status to other drugs, medicaments and biological substances; Z83.3 Family history of diabetes mellitus
CPT/HCPCS: 36415; 71045; 74176; 76705; 80053; 81001; 82803; 82962; 83036; 83605; 83690; 85025; 85610; 87040; 87086; 93005; 93010; 96361; 96365; 96375; 99285; 0241U; C9803; J2405; J2543; J2550; J3370; J7030; J7050